=== PATIENT | male | born 1950 | race Caucasian/White ===

== ENCOUNTER 2023-07-14 15:11 | Outpatient (RCR) | payer BC, SELFPAY | END 2023-07-14 23:59 | disposition home or self-care (01) | LOC: RPT 15:11 | PROVIDERS: ATTENDING PHYSICIAN Psychiatry & Neurology Neurology; FAMILY PHYSICIAN Family Medicine | DX: M25.511 Pain in right shoulder (principal) | CPT/HCPCS: 97010; 97110; 97112; 97140; 97162 ==

== ENCOUNTER → 2023-07-23 06:43 | Outpatient (REF) | payer BC, SELFPAY ==
[2023-07-23 07:53] LABS: % Basophils 0.5 % (0-2); % Eosinophils 2.3 % (0-6); % Immature Granulocytes 0.2 % (0-0.5); % Lymphocytes 37.9 % (20.5-51.1); % Monocytes 9.2 % (1.7-9.3); % Neutrophils 49.9 % (42.2-75.2); Absolute Eosinophils 0.1 10^3/uL (0-0.7); Absolute Lymphocytes 2.2 10^3/uL (1.2-3.4); Absolute Monocytes 0.5 10^3/uL (0.1-0.6); Absolute Neutrophils 2.9 10^3/uL (1.4-6.5); Hematocrit 41.7 % (39.0-52.0); Hemoglobin 13.7 g/dL (13.0-18.0); Mean Corp Hgb Conc. 32.9 g/dL (33.0-37.0); Mean Corpuscular Hgb 30.4 pg (27.0-31.0); Mean Corpuscular Volume 92.5 fL (80.0-94.0); Mean Platelet Volume 9.8 fL (7.4-10.4); Nucleated Red Blood Cells % 0 % (-); Platelet Count 348 10^3/uL (130-400); Red Blood Cell Count 4.51 10^6/uL (4.70-6.10); Red Cell Dist. Width 13.2 % (11.5-14.5); White Blood Cell Count 5.7 10^3/uL (4.8-10.8)
[2023-07-23 08:05] LABS: ALT (SGPT) 23 U/L (0-50); AST (SGOT) 27 U/L (17-59); Albumin 4.4 g/dl (3.5-5.0); Alkaline Phosphatase 62 U/L (38-126); Blood Urea Nitrogen 20 mg/dl (9-20); Calcium 9.1 mg/dl (8.4-10.2); Carbon Dioxide 27 mmol/L (22-30); Chloride 103 mmol/L (98-107); Creatine Phosphokinase 90 U/L (55-170); Glucose 107 mg/dl (70-99); HDL Cholesterol 89 mg/dl; Iron 175 ug/dl (49-181); LDL Cholesterol, Calculated 126 mg/dl; Potassium 4.4 mmol/L (3.5-5.1); Sodium 136 mmol/L (135-145); Total Bilirubin 0.8 mg/dl (0.2-1.3); Total Cholesterol 231 mg/dl (50-199); Total Protein 6.8 g/dl (6.3-8.2); Triglyceride 83 mg/dl (10-149); Very Low Density Lipoprotein 16 mg/dl (0-30); eGFR > 60.00
[2023-07-23 08:15] LABS: Percent Saturation 62 % (20-50); Total Iron Binding Capacity 281 ug/dl (261-462)
[2023-07-23 08:25] LABS: Vitamin D, 25-OH*** 26.6 ng/mL (30-80)
[2023-07-23 08:39] LABS: TSH 1.59 uIU/ml (0.47-4.68)
[2023-07-23 09:15] LABS: Folate > 20.0 ng/ml (2.76-20); Vitamin B12 341 pg/ml (239-931)
== END ==
LOC: REG 06:43
PROVIDERS: ATTENDING PHYSICIAN Physician Assistant Medical; FAMILY PHYSICIAN Family Medicine
DX: R53.83 Other fatigue (principal); E78.2 Mixed hyperlipidemia; R29.898 Other symptoms and signs involving the musculoskeletal system
CPT/HCPCS: 80053; 80061; 82306; 82550; 82607; 82728; 82746; 83540; 83550; 84443; 85025

== ENCOUNTER → 2023-07-30 11:23 | Outpatient (REF) | payer BC, SELFPAY | LOC: MRI 3T 11:23 | PROVIDERS: ATTENDING PHYSICIAN Physician Assistant Medical; FAMILY PHYSICIAN Family Medicine | DX: R29.898 Other symptoms and signs involving the musculoskeletal system (principal); M48.061 Spinal stenosis, lumbar region without neurogenic claudication; M51.36 Other intervertebral disc degeneration, lumbar region | CPT/HCPCS: 72148 ==

== ENCOUNTER → 2023-09-14 06:38 | Outpatient (REF) | payer BC, SELFPAY | LOC: REG 06:38 | PROVIDERS: ATTENDING PHYSICIAN Physician Assistant Medical | DX: R10.33 Periumbilical pain (principal); R19.7 Diarrhea, unspecified | CPT/HCPCS: 87045; 87046; 87324; 87427; 87449; 89055 ==

== ENCOUNTER → 2023-11-19 06:35 | Day surgery (SDC) | payer BC, SELFPAY | LOC: GI 06:35 | PROVIDERS: ATTENDING PHYSICIAN Internal Medicine | DX: K29.60 Other gastritis without bleeding (principal); K22.4 Dyskinesia of esophagus; K31.89 Other diseases of stomach and duodenum; Q39.9 Congenital malformation of esophagus, unspecified; R13.10 Dysphagia, unspecified | CPT/HCPCS: 43239; 88305; 88342 ==

== ENCOUNTER → 2023-11-24 11:37 | Outpatient (REF) | payer BC, SELFPAY ==
[2023-11-25 05:52] LABS: IgA 158 mg/dl (70-400)
[2023-11-27 01:46] LABS: Endomysial IgA Antibody Titer <1:10 (<1:10)
== END ==
LOC: REG 11:37
PROVIDERS: ATTENDING PHYSICIAN Internal Medicine
DX: R10.9 Unspecified abdominal pain (principal)
CPT/HCPCS: 36415; 82784; 83516; 86231

== ENCOUNTER → 2024-02-24 06:46 | Outpatient (REF) | payer BC, SELFPAY ==
[2024-02-24 07:42] LABS: % Basophils 0.5 % (0-2); % Eosinophils 2.1 % (0-6); % Immature Granulocytes 0.2 % (0-0.5); % Lymphocytes 30.1 % (20.5-51.1); % Monocytes 9.6 % (1.7-9.3); % Neutrophils 57.5 % (42.2-75.2); Absolute Eosinophils 0.1 10^3/uL (0-0.7); Absolute Lymphocytes 1.9 10^3/uL (1.2-3.4); Absolute Monocytes 0.6 10^3/uL (0.1-0.6); Absolute Neutrophils 3.6 10^3/uL (1.4-6.5); Hematocrit 41.9 % (39.0-52.0); Hemoglobin 13.8 g/dL (13.0-18.0); Mean Corp Hgb Conc. 32.9 g/dL (33.0-37.0); Mean Corpuscular Hgb 31.2 pg (27.0-31.0); Mean Corpuscular Volume 94.6 fL (80.0-94.0); Mean Platelet Volume 9.6 fL (7.4-10.4); Nucleated Red Blood Cells % 0 % (-); Platelet Count 300 10^3/uL (130-400); Red Blood Cell Count 4.43 10^6/uL (4.70-6.10); White Blood Cell Count 6.2 10^3/uL (4.8-10.8)
[2024-02-24 08:13] LABS: ALT (SGPT) 44 U/L (0-50); AST (SGOT) 34 U/L (17-59); Albumin 4.2 g/dl (3.5-5.0); Alkaline Phosphatase 59 U/L (38-126); Blood Urea Nitrogen 12 mg/dl (9-20); Calcium 9.6 mg/dl (8.4-10.2); Carbon Dioxide 27 mmol/L (22-30); Chloride 102 mmol/L (98-107); Glucose 100 mg/dl (70-99); HDL Cholesterol 67 mg/dl; LDL Cholesterol, Calculated 114 mg/dl; Potassium 4.9 mmol/L (3.5-5.1); Sodium 142 mmol/L (135-145); Total Bilirubin 0.5 mg/dl (0.2-1.3); Total Cholesterol 194 mg/dl (50-199); Total Protein 6.4 g/dl (6.3-8.2); Triglyceride 65 mg/dl (10-149); Very Low Density Lipoprotein 13 mg/dl (0-30); eGFR > 60.00
[2024-02-24 09:13] LABS: TSH 1.14 uIU/ml (0.47-4.68)
[2024-02-24 09:48] LABS: Folate 17.6 ng/ml (2.76-20); Vitamin B12 326 pg/ml (239-931)
[2024-02-24 10:07] LABS: Glycohemoglobin (HgbA1c) 5.7 % (4.0-5.6)
== END ==
LOC: REG 06:46
PROVIDERS: ATTENDING PHYSICIAN Family Medicine
DX: I10 Essential (primary) hypertension (principal); R73.01 Impaired fasting glucose; E78.2 Mixed hyperlipidemia; Z12.5 Encounter for screening for malignant neoplasm of prostate; Z00.00 Encounter for general adult medical examination without abnormal findings
CPT/HCPCS: 36415; 80053; 80061; 82607; 82746; 83036; 84443; 85025; G0103

== ENCOUNTER 2024-07-16 08:32 | Emergency (ER) | payer BC, SELFPAY ==
[2024-07-16] VITALS (11 sets, daily range): BP systolic 85–145; BP diastolic 67–97; BMI 24.4
--- NOTE | 2024-07-16 10:49 | ED.GENMED ---
History of Present Illness
General
Chief Complaint: Bowel Problem
Source: patient
Exam Limitations: none
Time Seen by Provider: 07/16/24 10:34
Nursing documentation reviewed up to this point in time: agreed with
History of Present Illness
History of Present Illness:
73-year-old male past medical history of diverticulitis hypertension presenting to the emergency department today with concerns of left lower quadrant abdominal pain decreased in bowel movements over the past few days. Denies fevers denies nausea
vomiting.
Past History
Past History
ED Past Medical History: None
ED Past Surgical History: Other (anal fistula 1972)
Social History
Tobacco: Non-smoker
Alcohol: Occasional
Drug: None
Personal: Partner
Living: with family
Employment: Employed
Review of Systems
Review of Systems
Allergies reviewed?: Yes
All Other Systems: ROS reviewed and negative except as documented in HPI and ROS
Phy Exam
Physical Exam
Physical Exam:
GENERAL: Alert , in no apparent distress
EYE: pupils equal and reactive
NECK: Supple, no significant adenopathy.
ENT: o/p clr, mmm.
CARDIAC: Regular rate and rhythm .
LUNGS: Clear breath sounds bilaterally, no acute respiratory distress, no wheezes/rales/rhonchi
ABDOMEN: Reproducible discomfort to left lower quadrant. Otherwise soft abdomen
NEUROLOGICAL: Alert and oriented, no focal neuro deficits
SKIN: Warm and dry, skin intact.
MUSCULOSKELETAL: No edema, well perfused.
PSYCH: Normal and appropriate interaction.
Course
Orders/Labs/Results
Orders:
Orders
07/16/24 10:46
CT Abd/Pel (IV only)-DH only Urgent
Comment:
Reason For Exam: llq pain hx of divertics
Ketorolac [Toradol] 15 mg IV NOW STA
07/16/24 11:06
Urinalysis Reflex To Culture Urgent
Date Specimen was Collected: 07/16/24
Time Specimen was Collected: 11:02
Urine Microscopic Reflex Cult Urgent
Urine Culture Urgent
ARNAUD Source: U
Specimen Description:
Date Specimen was Collected: 07/16/24
Time Specimen was Collected: 11:02
07/16/24 11:07
Complete Blood Count/With Diff Urgent
Comprehensive Metabolic Panel Urgent
Lipase Urgent
07/16/24 11:14
Stone Analysis With Image [S] Urgent
07/16/24 11:45
0.9% Sodium Chloride 1000 ml [Nss] 1,000 ml IV BOLUS
07/16/24 14:41
Ketorolac [Toradol] 15 mg IV NOW STA
07/16/24 14:49
BMP [Basic Metabolic Panel] Urgent
Abnormal Lab Results
07/16/24 07/16/24 07/16/24
11:06 11:07 14:49
WBC 11.1 H 10^3/uL
(4.8-10.8)
Abs Immat Gran (auto) 0.1 H 10^3/uL
(0-0.05)
Absolute Neuts (auto) 8.6 H 10^3/uL
(1.4-6.5)
Absolute Monos (auto) 0.9 H 10^3/uL
(0.1-0.6)
Neutrophils % 77.5 H %
(42.2-75.2)
Lymphocytes % 13.1 L %
(20.5-51.1)
Carbon Dioxide 31 H mmol/L
(22-30)
Creatinine 1.8 H mg/dL 1.6 H mg/dL
(0.7-1.3) (0.7-1.3)
Glucose 111 H mg/dl 104 H mg/dl
(70-99) (70-99)
Urine Ketones 1+ A
(Negative)
Ur Occult Blood Reflex 4+ A
(Negative)
Leukocyte Esterase Rfl 2+ A
(Negative)
Urine RBC >100 A /HPF
(0-2)
Urine Bacteria (Reflex) Moderate A
(Negative)
Urine Albumin (Reflex) 1+ A
(Neg - Trace)
07/16/24 11:07
07/16/24 14:49
Vital Signs
Initial and Last Documented VS:
Initial Vital Signs
Temp Pulse Resp BP Pulse Ox
99.6 F 78 18 145/97 98
07/16/24 08:57 07/16/24 08:57 07/16/24 08:57 07/16/24 08:57 07/16/24 08:57
Last Documented Vital Signs
Temp Pulse Resp BP Pulse Ox
99.6 F 78 18 118/82 98
07/16/24 08:57 07/16/24 08:57 07/16/24 08:57 07/16/24 15:30 07/16/24 15:30
MDM/Problems Addressed
MDM/Problems Addressed:
74-year-old male presenting to the emergency department today with concerns of left lower quadrant abdominal pain worsening over the past few days. Reproducible here to left lower quadrant. Temperature of 99.6 otherwise vital signs are normal.
Plan for labs and CT scan for further assessment of potential diverticulitis. While pending patient CT scan patient urinated into a cup and appeared to pass a kidney stone. Seemed to have improvement of symptoms after this. Urinalysis did show
red blood cells no evidence of infection creatinine was slightly elevated 1.8 typically is in the low ones. Was given a liter of fluid here. CT scan did not show any significant acute abnormalities. On my review it seems that there may have been
some slight dilatation of the ureter. Symptom certainly could be consistent with recently passed kidney stone. Labs repeated showing improving creatinine level patient well-appearing tolerated by mouth urinating normally stable for close
outpatient follow-up return precautions given.
*Critical Care Note
Total Time (30-74mins, 75-104mins- exclusive of procedures): Not Applicable
ED Attending Note
-
Portions of this chart may have been created with voice recognition software.� Occasional wrong word or��sound alike� substitutions may have occurred due to the inherent limitations of voice recognition software.
Discharge Plan
Departure
Patient Disposition: Home (Routine Discharge)
Date of Disposition: 07/16/24
Time of Disposition: 16:11
Patient with high blood pressure during this ER visit?: No
Condition: Good
Covid-19: Not Applicable
Discharge Problem:
Kidney stone, Elevated serum creatinine
Instructions: Kidney stones in adults, Kidney stone diet
Prescriptions:
No Action
polyethylene glycol 3350 [Miralax] 17 gram Powder In Packet
17 g PO HSPRN PRN (Reason: constipation)
clonazepam 0.5 mg Tablet
0.5 mg PO HSPRN PRN (Reason: anxiety)
Patient Comments:
05/05/23 filled on 04/12/23 #30
Theragen Tablet
1 tab PO DAILY
lisinopril 10 mg Tablet
10 mg PO DAILY
ibuprofen [Advil] 200 mg Tablet
400 mg PO DAILYPRN PRN (Reason: mild pain)
omeprazole 20 mg Capsule,Delayed Release(Dr/Ec)
20 mg PO DAILY
zolpidem 10 mg Tablet
10 mg PO HSPRN PRN (Reason: sleep)
Patient Comments:
05/05/23 filled on 04/07/23 #30
cholecalciferol (vitamin D3) [Vitamin D3] 50 mcg (2,000 unit) Tablet
50 mcg PO DAILY
Referrals:
Benito Andersen MD [Family Provider] -
Activity Restrictions/Additional Instructions:
You came to the emergency department today and appeared to pass a kidney stone. You had a slight elevation of your serum creatinine level of 1 and blood in your urine. Please have these tests repeated this week to ensure they are improving.
Return for any worsening, new or concerning symptoms
Interventions
Interventions:
*Risk Screen - Suicide Last Done: 07/16/24 08:57
*General Assessment Last Done: 07/16/24 08:57
*Neglect/Abuse Screening Last Done: 07/16/24 08:57
ED- Fall Risk Assessment Last Done: 07/16/24 11:10
*ED COVID-19 Vaccine History Last Done: 07/16/24 11:10
SD-Rovbgx-Luixptnvvw Assessment Last Done: 07/16/24 11:12
Discharge Date and Time
Print Language: TURKMEN
[2024-07-16] MEDS: TORADOL 15 MG IV ×2 (11:08→14:45)
[2024-07-16 11:25] LABS: % Basophils 0.3 % (0-2); % Eosinophils 0.3 % (0-6); % Immature Granulocytes 0.5 % (0-0.5); % Lymphocytes 13.1 % (20.5-51.1); % Monocytes 8.3 % (1.7-9.3); % Neutrophils 77.5 % (42.2-75.2); Absolute Immature Granulocytes 0.1 10^3/uL (0-0.05); Absolute Lymphocytes 1.5 10^3/uL (1.2-3.4); Absolute Monocytes 0.9 10^3/uL (0.1-0.6); Absolute Neutrophils 8.6 10^3/uL (1.4-6.5); Hematocrit 47.8 % (39.0-52.0); Mean Corp Hgb Conc. 33.5 g/dL (33.0-37.0); Mean Corpuscular Hgb 30.5 pg (27.0-31.0); Mean Corpuscular Volume 91.2 fL (80.0-94.0); Mean Platelet Volume 10.1 fL (7.4-10.4); Nucleated Red Blood Cells % 0 % (-); Platelet Count 311 10^3/uL (130-400); Red Blood Cell Count 5.24 10^6/uL (4.70-6.10); Red Cell Dist. Width 12.9 % (11.5-14.5); White Blood Cell Count 11.1 10^3/uL (4.8-10.8)
[2024-07-16 11:40] LABS: ALT (SGPT) 22 U/L (0-50); AST (SGOT) 25 U/L (17-59); Albumin 4.6 g/dl (3.5-5.0); Alkaline Phosphatase 62 U/L (38-126); Blood Urea Nitrogen 16 mg/dl (9-20); Calcium 9.4 mg/dl (8.4-10.2); Carbon Dioxide 31 mmol/L (22-30); Chloride 101 mmol/L (98-107); Estimated Creatinine Clearance 40 ml/min; Glucose 111 mg/dl (70-99); Lipase 34 U/L (23-300); Potassium 4.4 mmol/L (3.5-5.1); Sodium 141 mmol/L (135-145); Total Bilirubin 0.6 mg/dl (0.2-1.3); Total Protein 7.1 g/dl (6.3-8.2)
[2024-07-16 11:46] LABS: Urine Albumin 1+ (Neg - Trace); Urine Bilirubin Negative (Negative); Urine Character Slightly Cloudy (Clear); Urine Color Yellow; Urine Glucose Negative (Negative); Urine Ketone 1+ (Negative); Urine Leukocyte 2+ (Negative); Urine Nitrite Negative (Negative); Urine Occult Blood 4+ (Negative); Urine Specific Gravity 1.015 (<1.030); Urine Urobilinogen Negative (Neg - 1+)
[2024-07-16] MEDS: NSS 1000 IV (11:58)
[2024-07-16 12:11] LABS: Urine Red Blood Cell >100 /HPF (0-2); Urine Squamous Cell 0-2 /LPF (Few)
[2024-07-16 12:12] LABS: Urine Bacteria Moderate (Negative)
[2024-07-16 15:08] LABS: Blood Urea Nitrogen 17 mg/dl (9-20); Calcium 8.6 mg/dl (8.4-10.2); Carbon Dioxide 30 mmol/L (22-30); Chloride 103 mmol/L (98-107); Estimated Creatinine Clearance 44 ml/min; Glucose 104 mg/dl (70-99); Potassium 4.6 mmol/L (3.5-5.1); Sodium 139 mmol/L (135-145)
== END 2024-07-16 16:23 | disposition home or self-care (01) ==
LOC: EMR 08:32
PROVIDERS: Physician Assistant; EMERGENCY PHYSICIAN Emergency Medicine; FAMILY PHYSICIAN Family Medicine
DX: N20.0 Calculus of kidney (principal); R79.89 Other specified abnormal findings of blood chemistry; I10 Essential (primary) hypertension
CPT/HCPCS: 96374; 96375; 96361; 99284; 74177; 80048; 80053; 81003; 81015; 82365; 83690; 85025; 87086; Q9967

== ENCOUNTER → 2024-07-21 06:54 | Outpatient (REF) | payer BC, SELFPAY ==
[2024-07-21 08:08] LABS: ALT (SGPT) 24 U/L (0-50); AST (SGOT) 24 U/L (17-59); Albumin 4.4 g/dl (3.5-5.0); Alkaline Phosphatase 61 U/L (38-126); Blood Urea Nitrogen 19 mg/dl (9-20); Calcium 9.9 mg/dl (8.4-10.2); Carbon Dioxide 32 mmol/L (22-30); Chloride 98 mmol/L (98-107); Glucose 105 mg/dl (70-99); Potassium 5.3 mmol/L (3.5-5.1); Sodium 138 mmol/L (135-145); Total Bilirubin 0.5 mg/dl (0.2-1.3); Total Protein 6.6 g/dl (6.3-8.2); eGFR > 60.00
== END ==
LOC: REG 06:54
PROVIDERS: ATTENDING PHYSICIAN Family Medicine
DX: I10 Essential (primary) hypertension (principal); R79.9 Abnormal finding of blood chemistry, unspecified
CPT/HCPCS: 36415; 80053

== ENCOUNTER → 2024-09-06 13:43 | Outpatient (REF) | payer BC, SELFPAY ==
[2024-09-06 14:47] LABS: % Basophils 0.3 % (0-2); % Eosinophils 1.7 % (0-6); % Immature Granulocytes 0.2 % (0-0.5); % Monocytes 8.1 % (1.7-9.3); % Neutrophils 58.7 % (42.2-75.2); Absolute Eosinophils 0.1 10^3/uL (0-0.7); Absolute Lymphocytes 2.1 10^3/uL (1.2-3.4); Absolute Monocytes 0.5 10^3/uL (0.1-0.6); Absolute Neutrophils 3.9 10^3/uL (1.4-6.5); Hematocrit 41.6 % (39.0-52.0); Hemoglobin 13.1 g/dL (13.0-18.0); Mean Corp Hgb Conc. 31.5 g/dL (33.0-37.0); Mean Corpuscular Hgb 29.2 pg (27.0-31.0); Mean Corpuscular Volume 92.7 fL (80.0-94.0); Mean Platelet Volume 9.7 fL (7.4-10.4); Nucleated Red Blood Cells % 0 % (-); Platelet Count 324 10^3/uL (130-400); Red Blood Cell Count 4.49 10^6/uL (4.70-6.10); Red Cell Dist. Width 13.4 % (11.5-14.5); White Blood Cell Count 6.7 10^3/uL (4.8-10.8)
[2024-09-06 16:11] LABS: Vitamin D, 25-OH*** 33.3 ng/mL (30-80)
[2024-09-06 16:25] LABS: TSH Reflex To Free T4 1.19 uIU/ml (0.47-4.68)
== END ==
LOC: REG 13:43
PROVIDERS: ATTENDING PHYSICIAN Internal Medicine; FAMILY PHYSICIAN Family Medicine
DX: R53.82 Chronic fatigue, unspecified (principal)
CPT/HCPCS: 36415; 82306; 82728; 84443; 85025

== ENCOUNTER → 2024-09-23 11:36 | Outpatient (REF) | payer BC, SELFPAY | LOC: RAD 11:36 | PROVIDERS: ATTENDING PHYSICIAN Psychiatry & Neurology Neurology | DX: M47.817 Spondylosis without myelopathy or radiculopathy, lumbosacral region (principal); M54.12 Radiculopathy, cervical region; M53.3 Sacrococcygeal disorders, not elsewhere classified | CPT/HCPCS: 72050; 72200; 73502 ==

== ENCOUNTER → 2024-12-14 06:58 | Outpatient (REF) | payer BC, SELFPAY | LOC: MRI 3T 06:58 | PROVIDERS: ATTENDING PHYSICIAN Psychiatry & Neurology Neurology; FAMILY PHYSICIAN Family Medicine | DX: M54.2 Cervicalgia (principal) | CPT/HCPCS: 72141 ==

== ENCOUNTER 2025-02-13 09:20 | Outpatient (RCR) | payer BC, SELFPAY | END 2025-02-13 23:59 | disposition home or self-care (01) | LOC: RPT 09:20 | PROVIDERS: ATTENDING PHYSICIAN Physician Assistant; FAMILY PHYSICIAN Family Medicine | DX: M76.32 Iliotibial band syndrome, left leg (principal); Z73.6 Limitation of activities due to disability; M79.662 Pain in left lower leg | CPT/HCPCS: 97110; 97112; 97162 ==

== ENCOUNTER 2025-03-20 16:03 | Outpatient (RCR) | payer BC, SELFPAY | END 2025-03-20 23:59 | disposition home or self-care (01) | LOC: RPT 16:03 | PROVIDERS: ATTENDING PHYSICIAN Physician Assistant; FAMILY PHYSICIAN Family Medicine | DX: M76.32 Iliotibial band syndrome, left leg (principal); Z73.6 Limitation of activities due to disability; M79.662 Pain in left lower leg; R26.2 Difficulty in walking, not elsewhere classified; R26.89 Other abnormalities of gait and mobility | CPT/HCPCS: 97010; 97110 ==

== ENCOUNTER 2025-04-03 10:27 | Outpatient (RCR) | payer BC, SELFPAY | END 2025-04-10 23:59 | disposition home or self-care (01) | LOC: RPT 10:27 | PROVIDERS: ATTENDING PHYSICIAN Physician Assistant; FAMILY PHYSICIAN Family Medicine | DX: M76.32 Iliotibial band syndrome, left leg (principal); Z73.6 Limitation of activities due to disability; M79.662 Pain in left lower leg; R26.2 Difficulty in walking, not elsewhere classified; R26.89 Other abnormalities of gait and mobility | CPT/HCPCS: 97110; 97112 ==

== ENCOUNTER → 2025-04-14 06:59 | Outpatient (REF) | payer BC, SELFPAY ==
[2025-04-14 08:03] LABS: Hematocrit 46.8 % (39.0-52.0); Hemoglobin 14.7 g/dL (13.0-18.0); Mean Corp Hgb Conc. 31.4 g/dL (33.0-37.0); Mean Corpuscular Volume 95.7 fL (80.0-94.0); Nucleated Red Blood Cells % 0 % (-); Platelet Count 311 10^3/uL (130-400); Red Cell Dist. Width 13.0 % (11.5-14.5)
[2025-04-14 08:57] LABS: ALT (SGPT) 30 U/L (0-50); AST (SGOT) 26 U/L (17-59); Albumin 4.7 g/dl (3.5-5.0); Alkaline Phosphatase 64 U/L (38-126); Blood Urea Nitrogen 14 mg/dl (9-20); Calcium 9.8 mg/dl (8.4-10.2); Carbon Dioxide 30 mmol/L (22-30); Chloride 101 mmol/L (98-107); Glucose 95 mg/dl (70-99); HDL Cholesterol 92 mg/dl; LDL Cholesterol, Calculated 133 mg/dl; Potassium 4.6 mmol/L (3.5-5.1); Sodium 136 mmol/L (135-145); Total Protein 7.4 g/dl (6.3-8.2); Very Low Density Lipoprotein 11 mg/dl (0-30); eGFR > 60.00
[2025-04-14 09:30] LABS: TSH 1.04 uIU/ml (0.47-4.68)
[2025-04-14 09:40] LABS: Glycohemoglobin (HgbA1c) 5.7 % (4.0-5.9)
== END ==
LOC: REG 06:59
PROVIDERS: ATTENDING PHYSICIAN Physician Assistant Medical
DX: I10 Essential (primary) hypertension (principal); R73.01 Impaired fasting glucose; E78.2 Mixed hyperlipidemia
CPT/HCPCS: 36415; 80053; 80061; 83036; 84443; 85025